=== PATIENT | male | born 1995 | race Two or more races ===

== ENCOUNTER 2018-12-29 21:03 | Emergency (ER) | payer BC ==
--- NOTE | 2018-12-29 21:24 | EDPHY ---
H & P Smoking Status: Never smoked Time Seen by Provider: 12/29/18 21:20 HPI/ROS: CHIEF COMPLAINT: Possible finger dislocation HISTORY OF PRESENT ILLNESS: 23-year-old [id number] male was playing basketball, sustained a direct injury to his left index finger PIP joint with noted deformity. Intact skin. Unable to perform range of motion at the PIP secondary to pain. PHYSICAL EXAM (Prior to examination, patient consented to physical exam, hands were washed and my usual and customary physical exam procedures followed) 1) GENERAL: Well-developed, well-nourished, alert and oriented. Appears to be in no acute distress. 2) HEAD: Normocephalic 3) HEENT: sclera anicteric 4) LUNGS: Breathing comfortably. 5) SKIN: Intact skin to the left hand left fingers. No puncture wound. 6) MUSCULOSKELETAL: Noted deformity at the index finger PIP joint. 7) NEUROLOGIC: Full sensation two-point discrimination intact distally (Kirsten Manley) Constitutional: Initial Vital Signs Temperature (C) 36.8 C 12/29/18 21:11 Heart Rate 95 12/29/18 21:11 Respiratory Rate 18 12/29/18 21:11 Blood Pressure 137/101 H 12/29/18 21:11 O2 Sat (%) 96 12/29/18 21:11 O2 Delivery Mode Room Air Allergies/Adverse Reactions: No Known Allergies Allergy (Unverified 12/29/18 21:11) Home Medications: Medication Instructions Recorded NK [No Known Home Meds] 12/29/18 MDM/Departure - [facility] Imaging Results: Imaging Impressions Finger X-Ray 12/29/18 21:20 Impression: Dislocated PIP joint. Finger X-Ray 12/29/18 22:04 Impression: Successful reduction. Images reviewed myself (Kirsten Manley) Procedures: Procedure: Dislocation reduction. Digital nerve block of 1% plain lidocaine administered by myself in usual and customary fashion. After anesthetic allowed to take effect The dislocation of the PIP joint was reduced using traction and counter traction technique without complications. Post reduction the patient's neurovascular exam is normal. Post reduction x-ray demonstrates reduction of the joint to the anatomic position. The procedure was performed by myself.. Procedure: Splint A corey-tape and aluminum finger splint was applied by ER biomedical repair technician. After application of the splint I returned and re-examined the patient. The splint was adequately immobilizing the joint and distal to the splint the patient's circulation and sensation were intact. Patient shows no signs of compartment syndrome. Was given orthopedic precautions. (Kirsten Manley) ED Course/Re-evaluation: Re-evaluation with serial exams. Patient has been informed that although no fractures definitively identified, non osseous injury is not ruled out. He has been immobilized recommend follow up with Hand surgery. (Kirsten Manley) PHYSICIAN DOCUMENTATION: The patient was evaluated and managed by the Physician Title I Teacher. My co- signature indicates that I have reviewed this chart and I agree with the findings and plan of care as documented. I am the secondary supervising physician. (Darrell Han) - Depart Disposition: Home, Routine, Self-Care Clinical Impression: Dislocation of left index finger Qualifiers: Encounter type: initial encounter Qualified Code(s): S63.251A - Unspecified dislocation of left index finger, initial encounter Condition: Good Instructions: Finger Dislocation (ED) Additional Instructions: Return to the ER immediately if you experience discoloration, have worsening pain, numbness, tingling, or any other symptoms that concern you. If you received x-rays in the emergency department today, be advised, that ligamentous , tendon, muscular, and other non-bony injury cannot be fully ruled out. Try to keep your affected extremity elevated above the level of your chest, and keep cold packs on the affected area, for the next 48 hours. Referrals: Dayna Marie MD [Medical Doctor] - 2-3 days, call for appt.
[2018-12-29 22:43] VITALS: BP 122/76
== END 2018-12-29 22:43 | disposition home or self-care (01) ==
PROC: 0RSXXZZ Reposition Left Finger Phalangeal Joint, External Approach (ICD-10-PCS; principal; 2018-12-29)
DX: S63.251A Unspecified dislocation of left index finger, initial encounter (principal); W21.05XA Struck by basketball, initial encounter; Y93.67 Activity, basketball; Y92.310 Basketball court as the place of occurrence of the external cause
CPT/HCPCS: L3925